=== PATIENT | female | born 1975 | race African-American/Black ===

== ENCOUNTER 2019-10-10 15:48 | Emergency (ER) | payer OTHER ==
[2019-10-10 15:53] VITALS: BP 109/69; PULSE 90; TEMP 98; BMI 18.0
--- NOTE | 2019-10-10 16:23 | PDOC ---
History of Present Illness - General Chief Complaint: Pain Stated Complaint: RIGHT SIDE PAIN Time Seen by Provider: 10/10/19 16:12 History Source: Patient - History of Present Illness Timing/Duration: reports: intermittent Abdominal Pain Onset Location: reports: RLQ Pain Radiation: reports: no radiation Past History - Past Medical History Allergies/Adverse Reactions: Allergies Allergy/AdvReac Type Severity Reaction Status Date / Time Fish Containing Products Allergy Severe Hives Verified 10/10/19 15:53 lactose Allergy Severe Nausea Verified 10/10/19 15:53 tomato AdvReac Intermediate Nausea Verified 10/10/19 15:53 Home Medications: Ambulatory Orders NK [No Known Home Medication] 08/21/15 Anemia: Yes Asthma: Yes Cancer: No Cardiac Disorders: No CVA: No COPD: No CHF: No Dementia: No Diabetes: No GI Disorders: No Disorders: No HTN: No Hypercholesterolemia: No Kidney Stones: No Liver Disease: No Seizures: No Thyroid Disease: No - Reproductive History (#): 3 PID: No - Immunization History Immunization Up to Date: No - Psycho Social/Smoking Cessation Hx Smoking History: Current every day smoker Have you smoked in the past 12 months: Yes Number of Cigarettes Smoked Daily: 5 Information on smoking cessation initiated: No 'Breaking Loose' booklet given: 01/04/16 Hx Alcohol Use: Yes (long history of alcohol dependence) Drug/Substance Use Hx: Yes (PCP) Substance Use Type: Alcohol Hx Substance Use Treatment: Yes Abd/GI Specific PMHX - Complaint Specific PMHX Hepatitis: No Pancreatitis: No Review of Systems - Review of Systems Constitutional: No: Chills, Fever ABD/GI: No: Constipated, Diarrhea, Nausea, Vomiting : No: Burning, Dysuria, Discharge, Hematuria *Physical Exam - Vital Signs Last Vital Signs Temp Pulse Resp BP Pulse Ox 98 F 90 18 109/69 100 10/10/19 15:50 10/10/19 15:50 10/10/19 15:50 10/10/19 15:50 10/10/19 15:50 - Physical Exam General Appearance: Yes: Appropriately Dressed. No: Apparent Distress HEENT: positive: Normal Voice Neck: positive: Supple Respiratory/Chest: negative: Respiratory Distress Female Pelvic Exam: positive: normal external exam, cervical os closed, other ( Exam limited as pt refused manual exam, states "I don't want to be violated"). negative: Bartholin mass, vaginal bleeding Gastrointestinal/Abdominal: positive: Tender (significant ttp to RLQ and mid lower abd), Soft Musculoskeletal: negative: CVA Tenderness Integumentary: positive: Dry, Warm Neurologic: positive: Fully Oriented, Alert, Normal Mood/Affect ED Treatment Course - LABORATORY CBC & Chemistry Diagram: 10/10/19 16:30 10/10/19 16:30 Medical Decision Making - Medical Decision Making 10/10/19 16:20 44 yo F, h/o PTSD, bipolar, polysubstance abuse, asthma, anemia, s/p blood transfusion x 2, (1 ectopic s/p R salpingectomy, 2 elec ABs and 1 spon AB), with severe RLQ pain that has been intermittent x1 week. No change in bowel movements, dysuria, vaginal discharge, nausea, vomiting, fever or chills. Does report that she missed her period last month. see exam RLQ pain R/o preg given hx vs appy, less likely uti/pyelo, unable to fully eval for possible PID as non-compliant w/ manual exam -pain control -labs/ua -?US vs CT 10/10/19 18:11 Labs only remarkable for + PCP and marijuana. Patient was escorted to CAT scan and while there, refused to have CAT scan done. When returned to the main ED, patient refused further evaluation and was yelling and screaming at staff. At this point security was called to escort patient out of facility Discharge - Discharge Information Problems reviewed: Yes Clinical Impression/Diagnosis: Patient left before treatment completed Disposition: LEFT BEFORE MED [facility] - Follow up/Referral - Patient Discharge Instructions - Post Discharge Activity
[2019-10-10] MEDS ORDERED: ACETAMINOPHEN 1000 MG/100 ML VIAL (NON FORMULARY) IVPB ONE (16:26)
[2019-10-10] MEDS ORDERED: ACETAMINOPHEN INJECTION 100 ML IVPB ONE (16:27)
[2019-10-10 16:52] LABS: BASO % 1.2 % (0-2.0); EOS % 0.9 % (0-4.5); HEMOGLOBIN 9.7 GM/dL (10.7-15.3); MCH 21.5 pg (25.7-33.7); MCHC 31.1 g/dl (32.0-36.0); MEAN CELL VOLUME 69.2 fl (80-96); MEAN PLT VOLUME 9.1 fl (7.5-11.1); MONO % 9.8 % (3.8-10.2); NEUT % 64.1 % (42.8-82.8); PLATELET COUNT 246 K/MM3 (134-434); RBC 4.48 M/mm3 (3.60-5.2); RDW 19.3 % (11.6-15.6)
[2019-10-10 17:04] LABS: COCAINE, UR NEGATIVE ng/ml (CUTOFF=300); EPI CELLS 30.4 /HPF (0-5/HPF); HYALINE CASTS 29 /lpf (0-8); METHADONE, UR NEGATIVE ng/ml (CUTOFF=300); OPIATES, URI NEGATIVE ng/ml (CUTOFF=300); PH,URINE 5.5 (5.0-8.0); URINE AMPHETAMINES NEGATIVE ng/ml (CUTOFF=500); URINE APPEARANCE CLOUDY; URINE BARBITURATES NEGATIVE ng/ml (CUTOFF=200); URINE BENZODIAZEPINES NEGATIVE ng/ml (CUTOFF=200); URINE BILIRUBIN NEGATIVE (NEGATIVE); URINE COLOR YELLOW; URINE GLUCOSE (UA) NEGATIVE (NEGATIVE); URINE KETONE TRACE (NEGATIVE); URINE LEUK ESTERASE TRACE (NEGATIVE); URINE NITRITE NEGATIVE (NEGATIVE); URINE PROTEIN NEGATIVE (NEGATIVE); URINE WBC 12 /hpf (0-5)
[2019-10-10 17:06] LABS: PHENCYCLIDINE,URINE POSITIVE ng/ml (CUTOFF=25)
[2019-10-10 17:21] LABS: ALBUMIN 3.8 g/dl (3.4-5.0); BILIRUBIN,TOTAL 0.3 mg/dL (0.2-1); BLOOD UREA NITROGEN 8.8 mg/dL (7-18); CALCIUM 8.8 mg/dL (8.5-10.1); CREATININE 0.8 mg/dL (0.55-1.3); POTASSIUM 3.4 mmol/L (3.5-5.1); TOT PROT 7.1 g/dl (6.4-8.2)
[2019-10-10 17:24] LABS: URINE RBC 3 /hpf (0-4)
[2019-10-10 18:25] LABS: ANISOCYTOSIS 1+; TARGET CELLS FEW
[2019-10-10 18:26] LABS: PLATELET ESTIMATE ADEQUATE
== END 2019-10-10 18:00 | disposition left against medical advice (07) ==
LOC: JER 15:48
PROC: 3E033NZ Introduction of Analgesics, Hypnotics, Sedatives into Peripheral Vein, Percutaneous Approach (ICD-10-PCS; principal; 2019-10-10)
DX: R10.31 Right lower quadrant pain (principal); D64.9 Anemia, unspecified; J45.909 Unspecified asthma, uncomplicated; F31.9 Bipolar disorder, unspecified; F43.10 Post-traumatic stress disorder, unspecified; F19.20 Other psychoactive substance dependence, uncomplicated; Z59.0 Homelessness
CPT/HCPCS: 36415; 80053; 80307; 81003; 84703; 85025; 87086; 87491; 87591; 96374; 99285-25; J0131

== ENCOUNTER 2021-02-07 10:10 | Emergency (ER) | payer OTHER ==
[2021-02-07] MEDS ORDERED: ACETAMINOPHEN INJECTION 100 ML IVPB ONE (10:49)
[2021-02-07] MEDS ORDERED: SODIUM CHLORIDE 1,000 ML IV STA ×2 (10:50→12:46)
[2021-02-07] MEDS ORDERED: ACETAMINOPHEN 1000 MG/100 ML VIAL (NON FORMULARY) IVPB ONE (10:50)
[2021-02-07 10:57] VITALS: BMI 18.8
[2021-02-07 11:25] LABS: EOS % 0.9 % (0-4.5); HEMATOCRIT 28.4 % (32.4-45.2); HEMOGLOBIN 9.1 GM/dL (10.7-15.3); LYMPH % 26.3 % (8-40); MCH 23.2 pg (25.7-33.7); MCHC 32.2 g/dl (32.0-36.0); MEAN PLT VOLUME 9.2 fl (7.5-11.1); MONO % 8.6 % (3.8-10.2); NEUT % 63.2 % (42.8-82.8); PLATELET COUNT 191 K/MM3 (134-434); RBC 3.94 M/mm3 (3.60-5.2); WHITE BLOOD COUNT 6.2 K/mm3 (4.0-10.0)
[2021-02-07 11:46] LABS: CHLORIDE 108 mmol/L (98-107); SODIUM 139 mmol/L (136-145)
[2021-02-07 11:49] LABS: CALCIUM 9.4 mg/dL (8.5-10.1)
[2021-02-07 11:50] LABS: ALBUMIN 3.9 g/dl (3.4-5.0); ANION GAP 7 MMOL/L (8-16); BLOOD UREA NITROGEN 6.2 mg/dL (7-18); CO2 24 mmol/L (21-32); GLUCOSE,RANDOM 83 mg/dL (74-106)
[2021-02-07 11:53] LABS: CREATININE 0.7 mg/dL (0.55-1.3); SGOT/AST 15 U/L (15-37); SGPT/ALT 16 U/L (13-61)
[2021-02-07 11:55] LABS: BILIRUBIN,TOTAL 0.4 mg/dL (0.2-1)
[2021-02-07 11:56] LABS: ALK PHOS 59 U/L (45-117)
[2021-02-07 11:57] LABS: TOT PROT 7.2 g/dl (6.4-8.2)
[2021-02-07 13:22] VITALS: BP 106/72; PULSE 78; TEMP 97.9
== END 2021-02-07 14:10 | disposition home or self-care (01) ==
LOC: JER 10:10
PROC: 3E0333Z Introduction of Anti-inflammatory into Peripheral Vein, Percutaneous Approach (ICD-10-PCS; principal; 2021-02-07)
PROC: 3E0337Z Introduction of Electrolytic and Water Balance Substance into Peripheral Vein, Percutaneous Approach (ICD-10-PCS; 2021-02-07)
PROC: 3E0337Z Introduction of Electrolytic and Water Balance Substance into Peripheral Vein, Percutaneous Approach (ICD-10-PCS; 2021-02-07)
DX: N93.8 Other specified abnormal uterine and vaginal bleeding (principal); N83.201 Unspecified ovarian cyst, right side; D25.9 Leiomyoma of uterus, unspecified
CPT/HCPCS: 36415; 71045-TC-FY; 76604; 76705-TC; 76830-TC; 80053; 84702; 85025; 86850; 86900; 86901; 93308; 99284-25; C9803; J0131; U0003; U0005

== ENCOUNTER 2022-01-03 12:12 | Inpatient (IN) | payer OTHER ==
[2022-01-03 12:59] VITALS: BMI 19.7
[2022-01-03] MEDS ORDERED: ACETAMINOPHEN 325 MG TABLET (FP) PO PRN (14:14)
[2022-01-03] MEDS ORDERED: guaiFENesin 200 MG/10 ML 10 ML UNIT-DOSE CUPS PO PRN (14:14)
[2022-01-03] MEDS ORDERED: NICOTINE 10 MG CARTRIDGE (INHALER) IH PRN (14:14)
[2022-01-03] MEDS ORDERED: MAGNESIUM HYDROX 2400MG/30ML ORAL SUSPENSION 30 ML CUP PO PRN (14:14)
[2022-01-03] MEDS ORDERED: P-EPHED 60MG/TRIPROLIDI 2.5MG TABLET PO PRN (14:14)
[2022-01-03] MEDS ORDERED: MAG HYDROX/AL HYDROX/SIMETH 30 ML UNIT-DOSE CUP PO PRN (14:14)
[2022-01-03] MEDS ORDERED: LOPERAMIDE HCL 2 MG CAPSULE PO PRN (14:14)
[2022-01-03] MEDS ORDERED: MAGNESIUM CITRATE 300 ML BOTTLE PO PRN (14:14)
[2022-01-03] MEDS: NICOTINE 7 MG/24 HOURS TOPICAL PATCH TD SCH (22:07)
[2022-01-03] MEDS: hydrOXYzine PAMOATE 25 MG CAPSULE (FP) PO SCH ×2 (22:07→22:13)
[2022-01-03] MEDS: MELATONIN 5 MG TABLETS PO SCH (22:08)
[2022-01-03] MEDS: THIAMINE HCL 100 MG TABLET (FP) PO SCH (22:08)
[2022-01-03] MEDS: PRENATAL VITAMINS W/ FOLIC ACID TABLET (FP) PO SCH (22:08)
[2022-01-04] MEDS: hydrOXYzine PAMOATE 25 MG CAPSULE (FP) PO SCH ×3 (06:48→15:26)
[2022-01-04] MEDS: NICOTINE 7 MG/24 HOURS TOPICAL PATCH TD SCH (11:34)
[2022-01-04] MEDS: PRENATAL VITAMINS W/ FOLIC ACID TABLET (FP) PO SCH (11:35)
[2022-01-04] MEDS: MELATONIN 5 MG TABLETS PO SCH (22:48)
[2022-01-04] MEDS: THIAMINE HCL 100 MG TABLET (FP) PO SCH (22:48)
[2022-01-04] MEDS: QUEtiapine FUMARATE 100 MG TABLET (FP) PO SCH (22:49)
[2022-01-05] MEDS: QUEtiapine FUMARATE 50 MG TABLET PO SCH (10:51)
[2022-01-05] MEDS: PRENATAL VITAMINS W/ FOLIC ACID TABLET (FP) PO SCH (10:51)
[2022-01-05] MEDS: NICOTINE 7 MG/24 HOURS TOPICAL PATCH TD SCH (10:52)
[2022-01-05 14:08] LABS: SARS-CoV-2 NAA Not Detected (Not Detected)
[2022-01-05] MEDS: MELATONIN 5 MG TABLETS PO SCH (21:14)
[2022-01-05] MEDS: QUEtiapine FUMARATE 100 MG TABLET (FP) PO SCH (21:15)
[2022-01-05] MEDS: hydrOXYzine PAMOATE 25 MG CAPSULE (FP) PO PRN (21:15)
[2022-01-05] MEDS: THIAMINE HCL 100 MG TABLET (FP) PO SCH (21:15)
[2022-01-06] MEDS: PRENATAL VITAMINS W/ FOLIC ACID TABLET (FP) PO SCH (10:43)
[2022-01-06] MEDS: NICOTINE 7 MG/24 HOURS TOPICAL PATCH TD SCH (10:44)
[2022-01-06] MEDS: QUEtiapine FUMARATE 50 MG TABLET PO SCH (10:44)
[2022-01-06] MEDS: IBUPROFEN 400 MG TABLET (FP) PO PRN ×2 (10:46→21:24)
[2022-01-06] MEDS: QUEtiapine FUMARATE 100 MG TABLET (FP) PO SCH (21:24)
[2022-01-06] MEDS: MELATONIN 5 MG TABLETS PO SCH (21:24)
[2022-01-06] MEDS: THIAMINE HCL 100 MG TABLET (FP) PO SCH (21:24)
[2022-01-06] MEDS: hydrOXYzine PAMOATE 25 MG CAPSULE (FP) PO PRN (21:26)
[2022-01-07] MEDS: NICOTINE 7 MG/24 HOURS TOPICAL PATCH TD SCH (10:48)
[2022-01-07] MEDS: PRENATAL VITAMINS W/ FOLIC ACID TABLET (FP) PO SCH (10:48)
[2022-01-07] MEDS: QUEtiapine FUMARATE 50 MG TABLET PO SCH (10:48)
[2022-01-07 10:56] LABS: URINE APPEARANCE CLEAR; URINE BILIRUBIN NEGATIVE (NEGATIVE); URINE COLOR YELLOW; URINE GLUCOSE (UA) NEGATIVE (NEGATIVE); URINE KETONE NEGATIVE (NEGATIVE); URINE LEUK ESTERASE NEGATIVE (NEGATIVE); URINE NITRITE NEGATIVE (NEGATIVE); URINE PROTEIN NEGATIVE (NEGATIVE); URINE UROBILINOGEN 0.2 mg/dL (0.2-1.0)
[2022-01-07] MEDS: COLLOIDAL OATMEAL 1 BAR EACH TP PRN (16:37)
[2022-01-07 19:06] LABS: HEMATOCRIT 26.8 % (32.4-45.2); HEMOGLOBIN 7.6 GM/dL (10.7-15.3); MCHC 28.4 g/dl (32.0-36.0); MEAN CELL VOLUME 62.9 fl (80-96); MEAN PLT VOLUME 9.4 fl (7.5-11.1); PLATELET COUNT 392 10^3/uL (134-434); RBC 4.25 M/mm3 (3.60-5.2); RDW 24.8 % (11.6-15.6); WHITE BLOOD COUNT 5.4 K/mm3 (4.0-10.0)
[2022-01-07 19:08] LABS: MCH 17.9 pg (25.7-33.7)
[2022-01-07 19:14] LABS: CALCIUM 9.2 mg/dL (8.5-10.1)
[2022-01-07 19:15] LABS: ALBUMIN 3.6 g/dl (3.4-5.0); BLOOD UREA NITROGEN 13.2 mg/dL (7-18)
[2022-01-07 19:18] LABS: CREATININE 0.7 mg/dL (0.55-1.3)
[2022-01-07 19:20] LABS: BILIRUBIN,TOTAL 0.3 mg/dL (0.2-1)
[2022-01-07] MEDS: MELATONIN 5 MG TABLETS PO SCH (21:42)
[2022-01-07] MEDS: QUEtiapine FUMARATE 100 MG TABLET (FP) PO SCH (21:42)
[2022-01-07] MEDS: THIAMINE HCL 100 MG TABLET (FP) PO SCH (21:42)
[2022-01-07] MEDS: IBUPROFEN 400 MG TABLET (FP) PO PRN (21:43)
[2022-01-07] MEDS: hydrOXYzine PAMOATE 25 MG CAPSULE (FP) PO PRN (21:45)
[2022-01-07] MEDS: BENZOCAINE 20 % GEL TUBE MM PRN (21:45)
[2022-01-08] MEDS: PRENATAL VITAMINS W/ FOLIC ACID TABLET (FP) PO SCH (10:50)
[2022-01-08] MEDS: QUEtiapine FUMARATE 50 MG TABLET PO SCH (10:50)
[2022-01-08] MEDS: hydrOXYzine PAMOATE 25 MG CAPSULE (FP) PO PRN ×2 (10:51→21:34)
[2022-01-08] MEDS: IBUPROFEN 400 MG TABLET (FP) PO PRN (10:52)
[2022-01-08] MEDS: NICOTINE 7 MG/24 HOURS TOPICAL PATCH TD SCH (10:54)
[2022-01-08 18:07] LABS: SARS-CoV-2 NAA Not Detected (Not Detected)
[2022-01-08 19:06] LABS: SYPHILIS W/ RPR CONF NON-REACTIVE (NONREACTIVE)
[2022-01-08] MEDS: THIAMINE HCL 100 MG TABLET (FP) PO SCH (21:33)
[2022-01-08] MEDS: QUEtiapine FUMARATE 100 MG TABLET (FP) PO SCH (21:33)
[2022-01-08] MEDS: MELATONIN 5 MG TABLETS PO SCH (21:33)
[2022-01-09] MEDS: NICOTINE 7 MG/24 HOURS TOPICAL PATCH TD SCH (10:24)
[2022-01-09] MEDS: PRENATAL VITAMINS W/ FOLIC ACID TABLET (FP) PO SCH (10:24)
[2022-01-09] MEDS: QUEtiapine FUMARATE 50 MG TABLET PO SCH (10:24)
[2022-01-09] MEDS: IBUPROFEN 400 MG TABLET (FP) PO PRN ×2 (10:25→21:40)
[2022-01-09] MEDS: hydrOXYzine PAMOATE 25 MG CAPSULE (FP) PO PRN ×2 (10:27→21:40)
[2022-01-09] MEDS: TOLNAFTATE 1% CREAM 15 GM TUBE TP SCH ×2 (15:02→21:40)
[2022-01-09] MEDS: MELATONIN 5 MG TABLETS PO SCH (21:36)
[2022-01-09] MEDS: QUEtiapine FUMARATE 100 MG TABLET (FP) PO SCH (21:36)
[2022-01-09] MEDS: THIAMINE HCL 100 MG TABLET (FP) PO SCH (21:36)
[2022-01-10] MEDS: NICOTINE 7 MG/24 HOURS TOPICAL PATCH TD SCH (10:49)
[2022-01-10] MEDS: PRENATAL VITAMINS W/ FOLIC ACID TABLET (FP) PO SCH (10:49)
[2022-01-10] MEDS: QUEtiapine FUMARATE 50 MG TABLET PO SCH (10:50)
[2022-01-10] MEDS: hydrOXYzine PAMOATE 25 MG CAPSULE (FP) PO PRN ×2 (10:50→21:22)
[2022-01-10] MEDS: IBUPROFEN 400 MG TABLET (FP) PO PRN ×2 (10:51→21:22)
[2022-01-10] MEDS: TOLNAFTATE 1% CREAM 15 GM TUBE TP SCH ×2 (10:53→21:23)
[2022-01-10] MEDS: MELATONIN 5 MG TABLETS PO SCH (21:22)
[2022-01-10] MEDS: QUEtiapine FUMARATE 100 MG TABLET (FP) PO SCH (21:23)
[2022-01-10] MEDS: THIAMINE HCL 100 MG TABLET (FP) PO SCH (21:23)
[2022-01-11] MEDS: PRENATAL VITAMINS W/ FOLIC ACID TABLET (FP) PO SCH (10:29)
[2022-01-11] MEDS: NICOTINE 7 MG/24 HOURS TOPICAL PATCH TD SCH (10:29)
[2022-01-11] MEDS: hydrOXYzine PAMOATE 25 MG CAPSULE (FP) PO PRN ×2 (10:30→21:28)
[2022-01-11] MEDS: IBUPROFEN 400 MG TABLET (FP) PO PRN ×2 (10:30→21:32)
[2022-01-11] MEDS: QUEtiapine FUMARATE 50 MG TABLET PO SCH (10:30)
[2022-01-11] MEDS: TOLNAFTATE 1% CREAM 15 GM TUBE TP SCH ×2 (10:32→21:38)
[2022-01-11] MEDS: THIAMINE HCL 100 MG TABLET (FP) PO SCH (21:28)
[2022-01-11] MEDS: MELATONIN 5 MG TABLETS PO SCH (21:28)
[2022-01-11] MEDS: QUEtiapine FUMARATE 100 MG TABLET (FP) PO SCH (21:28)
[2022-01-11] MEDS: METHYL SALICYLATE/MENTHOL OINT 30 GM TUBE TP SCH (21:29)
[2022-01-11] MEDS: BENZOCAINE 20 % GEL TUBE MM PRN (21:32)
[2022-01-12] MEDS: QUEtiapine FUMARATE 50 MG TABLET PO SCH (11:00)
[2022-01-12] MEDS: PRENATAL VITAMINS W/ FOLIC ACID TABLET (FP) PO SCH (11:00)
[2022-01-12] MEDS: NICOTINE 7 MG/24 HOURS TOPICAL PATCH TD SCH (11:00)
[2022-01-12] MEDS: METHYL SALICYLATE/MENTHOL OINT 30 GM TUBE TP SCH ×2 (11:00→21:52)
[2022-01-12] MEDS: TOLNAFTATE 1% CREAM 15 GM TUBE TP SCH ×2 (11:01→21:52)
[2022-01-12] MEDS: COLLOIDAL OATMEAL 1 BAR EACH TP PRN (11:02)
[2022-01-12] MEDS: hydrOXYzine PAMOATE 25 MG CAPSULE (FP) PO PRN ×2 (11:03→21:51)
[2022-01-12] MEDS: IBUPROFEN 400 MG TABLET (FP) PO PRN ×2 (11:03→21:52)
[2022-01-12] MEDS: THIAMINE HCL 100 MG TABLET (FP) PO SCH (21:50)
[2022-01-12] MEDS: MELATONIN 5 MG TABLETS PO SCH (21:50)
[2022-01-12] MEDS: QUEtiapine FUMARATE 100 MG TABLET (FP) PO SCH (21:51)
[2022-01-13] MEDS: NICOTINE 7 MG/24 HOURS TOPICAL PATCH TD SCH (10:30)
[2022-01-13] MEDS: METHYL SALICYLATE/MENTHOL OINT 30 GM TUBE TP SCH ×2 (10:30→21:17)
[2022-01-13] MEDS: PRENATAL VITAMINS W/ FOLIC ACID TABLET (FP) PO SCH (10:30)
[2022-01-13] MEDS: IBUPROFEN 400 MG TABLET (FP) PO PRN ×2 (10:31→21:18)
[2022-01-13] MEDS: QUEtiapine FUMARATE 50 MG TABLET PO SCH ×2 (10:31→21:18)
[2022-01-13] MEDS: TOLNAFTATE 1% CREAM 15 GM TUBE TP SCH ×2 (10:32→22:48)
[2022-01-13] MEDS: MELATONIN 5 MG TABLETS PO SCH (21:17)
[2022-01-13] MEDS: hydrOXYzine PAMOATE 25 MG CAPSULE (FP) PO PRN (21:18)
[2022-01-13] MEDS: THIAMINE HCL 100 MG TABLET (FP) PO SCH (22:48)
[2022-01-14] MEDS: QUEtiapine FUMARATE 50 MG TABLET PO SCH ×2 (11:20→21:21)
[2022-01-14] MEDS: NICOTINE 7 MG/24 HOURS TOPICAL PATCH TD SCH (11:20)
[2022-01-14] MEDS: PRENATAL VITAMINS W/ FOLIC ACID TABLET (FP) PO SCH (11:20)
[2022-01-14] MEDS: METHYL SALICYLATE/MENTHOL OINT 30 GM TUBE TP SCH ×2 (11:21→21:21)
[2022-01-14] MEDS: TOLNAFTATE 1% CREAM 15 GM TUBE TP SCH ×2 (11:22→21:19)
[2022-01-14] MEDS: IBUPROFEN 400 MG TABLET (FP) PO PRN ×2 (11:23→21:20)
[2022-01-14] MEDS ORDERED: QUEtiapine FUMARATE 25 MG TABLET ONE (20:40)
[2022-01-14] MEDS: THIAMINE HCL 100 MG TABLET (FP) PO SCH (21:21)
[2022-01-14] MEDS: MELATONIN 5 MG TABLETS PO SCH (21:21)
[2022-01-14] MEDS: hydrOXYzine PAMOATE 25 MG CAPSULE (FP) PO PRN (21:21)
[2022-01-15] MEDS ORDERED: diphenhydrAMINE HCL 25 MG CAPSULE (FP) PO ONE (10:31)
[2022-01-15] MEDS ORDERED: diphenhydrAMINE HCL 25 MG CAPSULE (FP) PO PRN (10:31)
[2022-01-15] MEDS: NICOTINE 7 MG/24 HOURS TOPICAL PATCH TD SCH (11:00)
[2022-01-15] MEDS: METHYL SALICYLATE/MENTHOL OINT 30 GM TUBE TP SCH ×2 (11:01→21:30)
[2022-01-15] MEDS: QUEtiapine FUMARATE 100 MG TABLET (FP) PO SCH ×2 (11:01→21:31)
[2022-01-15] MEDS: PRENATAL VITAMINS W/ FOLIC ACID TABLET (FP) PO SCH (11:01)
[2022-01-15] MEDS: TOLNAFTATE 1% CREAM 15 GM TUBE TP SCH ×2 (11:01→21:30)
[2022-01-15] MEDS: IBUPROFEN 400 MG TABLET (FP) PO PRN (11:04)
[2022-01-15] MEDS: diphenhydrAMINE HCL 25 MG CAPSULE (FP) PO SCH (21:30)
[2022-01-15] MEDS: MELATONIN 5 MG TABLETS PO SCH (21:30)
[2022-01-15] MEDS: THIAMINE HCL 100 MG TABLET (FP) PO SCH (21:31)
[2022-01-16] MEDS: PRENATAL VITAMINS W/ FOLIC ACID TABLET (FP) PO SCH (11:01)
[2022-01-16] MEDS: METHYL SALICYLATE/MENTHOL OINT 30 GM TUBE TP SCH ×2 (11:01→21:21)
[2022-01-16] MEDS: NICOTINE 7 MG/24 HOURS TOPICAL PATCH TD SCH (11:01)
[2022-01-16] MEDS: QUEtiapine FUMARATE 100 MG TABLET (FP) PO SCH ×2 (11:03→21:20)
[2022-01-16] MEDS: diphenhydrAMINE HCL 25 MG CAPSULE (FP) PO SCH (11:03)
[2022-01-16] MEDS: TOLNAFTATE 1% CREAM 15 GM TUBE TP SCH ×2 (11:06→21:21)
[2022-01-16] MEDS: hydrOXYzine PAMOATE 25 MG CAPSULE (FP) PO PRN ×2 (13:35→21:21)
[2022-01-16] MEDS: THIAMINE HCL 100 MG TABLET (FP) PO SCH (21:20)
[2022-01-16] MEDS: MELATONIN 5 MG TABLETS PO SCH (21:21)
[2022-01-16] MEDS: IBUPROFEN 400 MG TABLET (FP) PO PRN (21:23)
[2022-01-17 07:30] VITALS: BP 109/71; PULSE 80; TEMP 98.6
[2022-01-17] MEDS: TOLNAFTATE 1% CREAM 15 GM TUBE TP SCH (10:10)
[2022-01-17] MEDS: PRENATAL VITAMINS W/ FOLIC ACID TABLET (FP) PO SCH (10:10)
[2022-01-17] MEDS: METHYL SALICYLATE/MENTHOL OINT 30 GM TUBE TP SCH (10:10)
[2022-01-17] MEDS: QUEtiapine FUMARATE 100 MG TABLET (FP) PO SCH (10:10)
[2022-01-17] MEDS: NICOTINE 7 MG/24 HOURS TOPICAL PATCH TD SCH (10:11)
[2022-01-17] MEDS: hydrOXYzine PAMOATE 25 MG CAPSULE (FP) PO PRN (10:12)
== END 2022-01-17 13:00 | disposition home or self-care (01) | DRG 772 ==
LOC: YASAS 12:12 → Y5N 18:10
PROVIDERS: ADMIT Allergy & Immunology; ATTEND Allergy & Immunology
PROC: HZ42ZZZ Group Counseling for Substance Abuse Treatment, Cognitive-Behavioral (ICD-10-PCS; principal; 2022-01-03)
DX: F10.20 Alcohol dependence, uncomplicated (principal); F16.20 Hallucinogen dependence, uncomplicated; F17.210 Nicotine dependence, cigarettes, uncomplicated; F31.60 Bipolar disorder, current episode mixed, unspecified; F20.9 Schizophrenia, unspecified; F19.950 Other psychoactive substance use, unspecified with psychoactive substance-induced psychotic disorder with delusions; F19.24 Other psychoactive substance dependence with psychoactive substance-induced mood disorder; F43.10 Post-traumatic stress disorder, unspecified; J45.20 Mild intermittent asthma, uncomplicated; F29 Unspecified psychosis not due to a substance or known physiological condition; B35.3 Tinea pedis; Z56.0 Unemployment, unspecified; Z59.00 Homelessness unspecified; Z91.012 Allergy to eggs; Z91.013 Allergy to seafood; Z91.018 Allergy to other foods; T78.1XXA Other adverse food reactions, not elsewhere classified, initial encounter; R22.9 Localized swelling, mass and lump, unspecified
CPT/HCPCS: 36415; 80053; 81003; 81025; 85027; 86780; 86803; C9803-CS; U0003; U0005

== ENCOUNTER 2024-07-27 13:04 | Inpatient (IN) | payer OTHER ==
[2024-07-27 14:19] VITALS: BMI 18.7
[2024-07-27] MEDS ORDERED: guaiFENesin 600 MG TABLET.ER (FP) PO PRN (15:11)
[2024-07-27] MEDS ORDERED: BENZONATATE 200 MG CAPSULE PO PRN (15:11)
[2024-07-27] MEDS ORDERED: MAG HYDROX/AL HYDROX/SIMETH 30 ML UNIT-DOSE CUP PO PRN (15:11)
[2024-07-27] MEDS ORDERED: LOPERAMIDE HCL 2 MG CAPSULE PO PRN (15:11)
[2024-07-27] MEDS ORDERED: BENZOCAINE/MENTHOL (CHLORASEPTIC ) LOZENGE MM PRN (15:11)
[2024-07-27] MEDS ORDERED: POLYETHYLENE GLYCOL (HEALTHYLAX) 3350 17 GM PACKET PO PRN (15:11)
[2024-07-27] MEDS ORDERED: ACETAMINOPHEN 325 MG TABLET (FP) PO PRN (15:11)
[2024-07-27] MEDS ORDERED: IBUPROFEN 400 MG TABLET (FP) PO PRN (15:11)
[2024-07-27] MEDS ORDERED: NICOTINE POLACRILEX 2 MG GUM BUC PRN (15:11)
[2024-07-27] MEDS ORDERED: IBUPROFEN 600 MG TABLET (FP) PO PRN (15:11)
[2024-07-27] MEDS ORDERED: MAGNESIUM HYDROX 2400MG/30ML ORAL SUSPENSION 30 ML CUP PO PRN (15:11)
[2024-07-27] MEDS ORDERED: NICOTINE POLACRILEX 2 MG LOZENGE BC PRN (15:11)
[2024-07-27 18:47] VITALS: TEMP 98.7
[2024-07-27] MEDS: hydrOXYzine PAMOATE 25 MG CAPSULE (FP) PO PRN (21:08)
[2024-07-27] MEDS: THIAMINE 100 MG TABLET PO SCH (21:08)
[2024-07-27] MEDS: MELATONIN 5 MG TABLETS PO SCH (21:08)
[2024-07-27 22:19] LABS: EPI CELLS 17 /uL (0-25.1); HYALINE CASTS 1 /uL (0-3.1); URINE APPEARANCE CLEAR; URINE BACTERIA 53 /uL (0-1359); URINE BILIRUBIN NEGATIVE (NEGATIVE); URINE COLOR YELLOW; URINE GLUCOSE (UA) NEGATIVE (NEGATIVE); URINE KETONE NEGATIVE (NEGATIVE); URINE LEUK ESTERASE TRACE (NEGATIVE); URINE NITRITE NEGATIVE (NEGATIVE); URINE PROTEIN NEGATIVE (NEGATIVE); URINE RBC 2221 /uL (0-23.9); URINE UROBILINOGEN 0.2 mg/dL (0.2-1.0); URINE WBC 43 /uL (0-25.8)
[2024-07-28] MEDS: MELATONIN 5 MG TABLETS PO ONE (00:45)
[2024-07-28] MEDS: QUEtiapine FUMARATE 100 MG TABLET (FP) PO ONE (01:45)
[2024-07-28] MEDS: PRENATAL VITAMINS W/ FOLIC ACID TABLET (FP) PO SCH (10:14)
[2024-07-28 11:50] VITALS: BP 111/78; PULSE 72; RESP 16
[2024-07-28] MEDS ORDERED: QUEtiapine FUMARATE 100 MG TABLET (FP) PO SCH (22:00)
[2024-07-28] MEDS: QUEtiapine FUMARATE 100 MG TABLET (FP) PO SCH (22:24)
[2024-07-29] MEDS: NALOXONE (NYS OPIOID OVERDOSE PROGRAM) 4 MG/0.1 ML SPRAY NS SCH (02:05)
[2024-07-29] MEDS ORDERED: NALOXONE (NYS OPIOID OVERDOSE PROGRAM) 4 MG/0.1 ML SPRAY NS SCH (10:15)
== END 2024-07-29 10:52 | disposition left against medical advice (07) | DRG 772 ==
LOC: YASAS 13:04 → Y3NR 17:44 → Y5N 07-28 11:45
PROVIDERS: ADMIT Allergy & Immunology; ATTEND Psychiatry & Neurology Pain Medicine
PROC: HZ42ZZZ Group Counseling for Substance Abuse Treatment, Cognitive-Behavioral (ICD-10-PCS; principal; 2024-07-27)
DX: F16.20 Hallucinogen dependence, uncomplicated (principal); F17.210 Nicotine dependence, cigarettes, uncomplicated; F20.9 Schizophrenia, unspecified; F43.10 Post-traumatic stress disorder, unspecified; G47.00 Insomnia, unspecified; F91.8 Other conduct disorders; Z91.199 Patient's noncompliance with other medical treatment and regimen due to unspecified reason
CPT/HCPCS: 80305; 81003; 81025; 87811; 93005; 93010